=== PATIENT | female | born 2005 | race Caucasian/White ===

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

== ENCOUNTER 2024-01-17 18:28 | Emergency (ER) | payer OTHER, SELFPAY ==
[2024-01-17 18:37] VITALS: BP 130/76; PULSE 100; RESP 18; TEMP 38; O2SAT 96; BMI 20.4
--- NOTE | 2024-01-17 18:51 | CRLHL7_ITS ---
For Patients: As a result of the Century Cures Act, medical imaging exams and procedure reports are released immediately into your electronic medical record. You may view this report before your referring provider. If you have questions, please contact your health care provider. INDICATION: Headache for 3 days TECHNIQUE: Noncontrast axial CT of the head. Coronal and sagittal reformats. Bone and soft tissue algorithms. COMPARISON: MRI brain report 08/30/2022 FINDINGS: The ventricles and cortical sulci appear age-appropriate. No midline shift or mass effect. No acute intracranial hemorrhage or extra-axial fluid collection. Knutson-white matter differentiation is grossly maintained. White matter attenuation is within normal limits. Intracranial vessels are unremarkable for technique. Midline structures are unremarkable. Bony calvarium appears grossly intact. Mild mucosal thickening along the inferior maxillary sinuses. Clear mastoid air cells. Unremarkable orbits. IMPRESSION: Unremarkable CT head. No evidence of acute intracranial abnormality. Please note that all CT scans at this facility use dose modulation, iterative reconstruction, and/or weight-based dosing when appropriate to reduce radiation dose to as low as reasonably achievable. Dictated by Isabel Wilson MD @ 01/17/2024 8:35:06 PM (Electronically Signed)
--- NOTE | 2024-01-17 18:52 | ED_ITS ---
HPI - Headache General Chief Complaint: Headache/Migraine Stated Complaint: headache x3 days Time Seen by Provider: 01/17/24 18:41 History of Present Illness HPI Narrative: This 18-year-old male comes in with his mother reporting headache for the past 3 days. He does not normally get headaches. He states that the headache is primarily in the frontal part of his head but extends posteriorly from there. He had some nausea and emesis just at the time IA began my initial interview wit h him. He arrives with a temperature at 100.4? F but denies any signs or symptoms of infection and did not know that his temperature was at this level. He denies having any neck pain or back pain. Related Data Home Medications ?Medication ?Instructions ?Recorded ?Confirmed No Known Home Medications 05/02/22 08/06/23 Allergies Allergy/AdvReac Type Severity Reaction Status Date / Time diphenhydramine Allergy Verified 08/06/23 09:19 [From Benadryl] Review of Systems Status of ROS: Reports: 10 or more systems reviewed and unremarkable except as noted in History and below Narrative: Constitutional: No fevers, no weight gain or loss. Eyes: No discharge. No vision changes. HENT: No congestion, no sore throat, no ear pain. Cardiovascular: No chest pain, no palpitations. Respiratory: No shortness of breath, no wheezes, no cough. Gastrointestinal: No abdominal pain, no vomiting, no diarrhea. Genitourinary: No dysuria, no hematuria. Musculoskeletal: Normal range of motion. Skin: No rashes, no pruritis. Neurological: No dizziness, weakness, sensory change, speech change. Endo/Heme/Allergies: No bruising or bleeding. No polydipsia. Pysch: no suicidality, no anxiety, no insomnia. All other systems reviewed and are negative. PFSH PFSH Social History Smoking Status: Unknown if ever smoked Do you use any of these nicotine containing products: None How often do you have a drink containing alcohol: never AUDIT-C Alcohol total score: 0 Non-prescribed substance use: denies use Exam Narrative: Exam Narrative: Constitutional: Well-developed, well-nourished, no acute distress. HEENT: Normocephalic, atraumatic. Neck: Normal range of motion. Nontender. Supple. Heart: Regular. No murmurs. Normal rate. Intact distal pulses. Lungs: Clear to auscultation. No chest discomfort. No wheezes, rhonchi, or rales. Abdomen: Normal bowel sounds. Nontender. No rebound tenderness. Genitalia: Deferred. Back: No midline tenderness. Normal range of motion. Extremities: Normal range of motion. No injury. Skin: Intact. No rash. Warm. No erythema or pallor. Neurologic: No altered sensation. No weakness. Alert and oriented. Psychiatric: No suicidality. No anxiety or depression. No insomnia. Nursing notes and vitals signs are reviewed. Const: Vital Signs, click to edit/add: Vital Signs - 24 hr 01/17/24 18:37 Temperature 100.4 F H Pulse Rate [Right Pulse Oximeter] 100 Respiratory Rate 18 Blood Pressure [Ri ght Upper Arm] 130/76 Pulse Oximetry 96 Oxygen Delivery Me thod Room Air Course Vital Signs Vital signs: Initial Vital Signs Temperature 100.4 F H 01/17/24 18:37 Temperature Source Temporal Artery Scan 01/17/24 18:37 Pulse Rate 100 01/17/24 18:37 Respiratory Rate 18 01/17/24 18:37 Blood Pressure 130/76 01/17/24 18:37 Blood Pressure Mean 94 01/17/24 18:37 Blood Pressure Position Sitting 01/17/24 18:37 Pulse Oximetry 96 01/17/24 18:37 Oxygen Delivery Method Room Air 01/17/24 18:37 Vital Signs Temperature 100.4 F H 01/17/24 18:37 Pulse Rate 100 01/17/24 18:37 Respiratory Rate 18 01/17/24 18:37 Blood Pressure 130/76 01/17/24 18:37 Pulse Oximetry 96 01/17/24 18:37 Oxygen Delivery Method Room Air 01/17/24 18:37 Temperature 100.4 F H 01/17/24 18:37 Pulse Rate 100 01/17/24 18:37 Respiratory Rate 18 01/17/24 18:37 Blood Pressure 130/76 01/17/24 18:37 Pulse Oximetry 96 01/17/24 18:37 Oxygen Delivery Method Room Air 01/17/24 18:37 Medications Administered Medications: Discontinued Medications Generic Name Dose Route Start Last Admin Trade Name Freq PRN Reason Stop Dose Admin Diphenhydramine HCl 50 mg 01/17/24 18:50 01/17/24 19:23 Diphenhydramine 50 Mg/Ml Inj IVP 01/17/24 18:51 Not Given ONCE ONE Diphenhydramine HCl 25 mg 01/17/24 18:54 01/17/24 19:15 Diphenhydramine 50 Mg/Ml Inj IVP 01/17/24 18:55 25 mg ONCE ONE Administration Sodium Chloride 1,000 mls @ 1,000 mls/hr 01/17/24 19:00 01/17/24 19:12 0.9 % Sodium Chloride 1000 Ml IV 01/17/24 19:59 1,000 mls/hr .Q1H TONY Administration Ketorolac Tromethamine 30 mg 01/17/24 18:50 01/17/24 19:20 Ketorolac 30 Mg/Ml Inj IVP 01/17/24 18:51 30 mg ONCE ONE Administration Ondansetron HCl 4 mg 01/17/24 18:50 01/17/24 19:17 Ondansetron 2 Mg/Ml Inj IVP 01/17/24 18:51 4 mg ONCE ONE Administration MDM - Headache MDM Narrative Medical decision making narrative: This patient comes in because of headache and now has had a vomiting episode. He arrives with normal vital signs except has a temperature that is borderline for fever. The patient does not feel like he is sick with an infection and has no other symptoms. He has had no recent travel or sick exposures. An IV was placed where he received Toradol, Zofran, and Benadryl for symptomatic relief. I did discuss the role of imaging in his mother was rather interested in having CT scan to rule out something that may be causing this. Lab results returned with reassuring findings. His white count is a bit elevated at 12. Nasal swab is negative for viral infection. CT scan is happening at the end of my shift and results will be reviewed by the oncoming ER physician. The patient should be okay to return home. Lab Data Labs: Lab Results 01/17/24 01/17/24 Range/Units 18:51 19:20 WBC 12.13 H (4.50-11.00) K/uL RBC 4.89 (4.30-5.90) m/uL Hgb 15.9 (13.5-17.5) gm/dL Hct 45.2 (37.0-53.0) % MCV 92 (80-100) fL MCH 33 (26-34) pg MCHC 35 (32-36) gm/dL RDW Coeff of Андрей 11.5 (11.5-15.5) % Plt Count 288 (140-440) K/uL Neut % (Auto) 75.0 H (42.0-72.0) % Lymph % (Auto) 14.2 L (20-44) % [place] % (Auto) 6.6 (0.0-11.0) % Eos % (Auto) 3.9 (0.0-7.0) % Baso % (Auto) 0.2 (0.0-3.0) % Neut # (Auto) 9.10 H (1.7-7.0) K/uL Lymph # (Auto) 1.70 (0.90-2.90) K/uL [place] # (Auto) 0.80 (0.00-0.90) K/UL Eos # (Auto) 0.50 (0.00-0.50) K/uL Baso # (Auto) 0.00 (0.00-0.30) K/uL Abs Immat Gran (auto) 0.00 (0.00-0.30) K/uL Imm/Tot Granulo (auto) 0.1 % SARS-CoV-2 (PCR) Negative SARS-CoV-2 (Negative) Influenza Type A (PCR) Negative PCR FLU A (Negative) Influenza Type B (PCR) Negative PCR FLU B (Negative) Discharge Plan Discharge Clinical Impression: Headache Prescriptions: No Action No Known Home Medications Follow Up/Referrals: Ashleigh Fuentes MD [Primary Care Provider] -
[2024-01-17] MEDS: 0.9 % SODIUM CHLORIDE 1000 ml 1,000 ML IV (19:12)
[2024-01-17] MEDS: diphenhydrAMINE 50 MG/ML inj 25 MG IVP (19:15)
[2024-01-17] MEDS: ONDANSETRON 2 MG/ML inj 4 MG IVP (19:17)
[2024-01-17 19:19] LABS: Basophils Percent Auto 0.2 % (0.0-3.0); Eosinophils Percent Auto 3.9 % (0.0-7.0); Hematocrit 45.2 % (37.0-53.0); Hemoglobin* 15.9 gm/dL (13.5-17.5); Immature Granulocytes Pct Auto 0.1 %; Lymphocytes Percent Auto 14.2 % (20-44); Mean Corpuscular HGB Conc 35 gm/dL (32-36); Mean Corpuscular Hemoglobin 33 pg (26-34); Mean Corpuscular Volume 92 fL (80-100); Monocytes Percent Auto 6.6 % (0.0-11.0); Platelet Count* 288 K/uL (140-440); RDW Coefficient of Variation % 11.5 % (11.5-15.5); Red Blood Count 4.89 m/uL (4.30-5.90); White Blood Count* 12.13 K/uL (4.50-11.00)
[2024-01-17] MEDS: KETOROLAC 30 MG/ML inj IVP (19:20)
[2024-01-17 19:34] LABS: Slide Review Reflex No
[2024-01-17 20:08] LABS: PCR FLU A Negative PCR FLU A (Negative); PCR FLU B Negative PCR FLU B (Negative); SARS PCR* Negative SARS-CoV-2 (Negative)
[2024-01-17 20:22] VITALS: BP 121/77; PULSE 92; RESP 18; O2SAT 97
[2024-01-17 20:42] VITALS: TEMP 37.6
[2024-01-17] MEDS: KETAMINE 50 MG/0.5 ML 20 MG in 0.9 % SODIUM CHLORIDE 100 ml 100 ML 200.4 MG IVPB (21:08)
== END 2024-01-17 21:45 | disposition home or self-care (01) ==
PROVIDERS: Emergency Provider Emergency Medicine Emergency Medical Services; PCP Pediatrics
DX: R51.9 Headache, unspecified (principal)
CPT/HCPCS: 36415; 70450; 85025; 87631; 96365; 96375; 99284; J1200; J1885; J2405; J3490; J7030